=== PATIENT | female | born 1990 | race Caucasian/White ===

== ENCOUNTER 2024-11-29 22:26 | Inpatient (IN) | payer OTHER ==
[~2024-11-29] VITALS: Ht 152.4 cm; Wt 43.0 kg
[2024-11-30] MEDS ORDERED: MOM 30 ML SUSPENSION UDC PO PRN (03:10)
[2024-11-30] MEDS ORDERED: MAALOX 30 ML SUSP *UDC PO PRN (03:10)
[2024-11-30] MEDS ORDERED: traZODone 50 MG TAB PO PRN (03:10)
[2024-11-30 04:45] VITALS: BP 106/69; TEMP 97.6; O2SAT 100
[2024-11-30] MEDS ORDERED: NACCAP PO (06:27)
[2024-11-30] MEDS ORDERED: BUSP10TA PO (06:27)
[2024-11-30] MEDS ORDERED: NICO1DIS12 TD (06:27)
[2024-11-30] MEDS ORDERED: HYDR-3363 PO (06:27)
[2024-11-30] MEDS ORDERED: TRAZ-252 PO (06:27)
[2024-11-30] MEDS ORDERED: KLON0.5T8 PO (06:27)
[2024-11-30] MEDS ORDERED: LEXA1TAB PO (06:27)
[2024-11-30] MEDS ORDERED: HOME MED LIST COMPLETE! XX SCH (06:30)
[2024-11-30] MEDS: NICOTINE 14 MG/24 HR TRANSDERMAL TD SCH (11:10)
[2024-11-30 15:11] VITALS: BP 104/55; TEMP 98.8; O2SAT 100
[2024-11-30] MEDS: clonazePAM 0.5 MG TAB PO PRN (17:27)
[2024-11-30] MEDS: QUEtiapine FUMARATE 50MG TAB PO SCH (20:38)
[2024-12-01 06:00] VITALS: BP 104/75; TEMP 98.6; O2SAT 99
[2024-12-01] MEDS: ESCITALOPRAM OXALATE 10 MG TABLET PO SCH (08:34)
[2024-12-01] MEDS: ACETAMINOPHEN 325 MG TAB PO PRN (11:16)
[2024-12-01] MEDS ORDERED: NICOTINE 21 MG/24 HR 1 EA TRANSDERMAL TD SCH (13:05)
[2024-12-01 15:23] VITALS: BP 114/65; TEMP 91.9; O2SAT 100
[2024-12-01] MEDS: traZODone 100 MG TAB PO ONE (21:54)
[2024-12-02 06:00] VITALS: BP 102/55; TEMP 98.5; O2SAT 99
[2024-12-02] MEDS ORDERED: TRAZ-252 PO (09:16)
[2024-12-02] MEDS ORDERED: NICO1DIS12 TD (09:16)
[2024-12-02] MEDS ORDERED: CLON0.5T2 PO (09:17)
[2024-12-02] MEDS ORDERED: LEXA1TAB PO (09:17)
[2024-12-02] MEDS ORDERED: BUSP10TA PO (09:17)
[2024-12-02] MEDS: IBUPROFEN 400 MG TAB PO PRN (12:09)
== END 2024-12-02 14:05 | disposition home or self-care (01) | DRG 751 ==
LOC: M ED 22:26 → M ED INP 11-30 03:08 → M PSY 11-30 04:42
PROVIDERS: ADMIT Psychiatry & Neurology Neurology; ATTEND Psychiatry & Neurology Neurology
DX: F33.0 Major depressive disorder, recurrent, mild (principal); F41.1 Generalized anxiety disorder; G40.909 Epilepsy, unspecified, not intractable, without status epilepticus; F41.0 Panic disorder [episodic paroxysmal anxiety]; F43.10 Post-traumatic stress disorder, unspecified; F14.90 Cocaine use, unspecified, uncomplicated; F12.90 Cannabis use, unspecified, uncomplicated; F17.200 Nicotine dependence, unspecified, uncomplicated; F10.10 Alcohol abuse, uncomplicated; Z79.899 Other long term (current) drug therapy; B18.2 Chronic viral hepatitis C; J45.909 Unspecified asthma, uncomplicated